=== PATIENT | male | born 1980 | race Two or more races ===

== ENCOUNTER 2021-07-24 00:52 | Emergency (ER) | payer MEDICAID, OTHER ==
[~2021-07-24] VITALS: Ht 167.6 cm; Wt 95.3 kg
[2021-07-24 02:59] VITALS: BP 129/75
[2021-07-24] MEDS ORDERED: cefTRIAXone SOD 1,000 MG VL IM ONE (03:00)
== END 2021-07-24 03:39 | disposition home or self-care (01) ==
LOC: ER 00:52
DX: L03.113 Cellulitis of right upper limb (principal); F15.10 Other stimulant abuse, uncomplicated; Z88.0 Allergy status to penicillin
CPT/HCPCS: 96372; 99283; J0696